=== PATIENT | male | born 1980 ===

== ENCOUNTER 2017-05-02 07:45 | Emergency (ER) | payer SELFPAY ==
[2017-05-02 08:21] VITALS: BP 122/74
--- NOTE | 2017-05-02 09:50 | UC ---
Abdominal Pain Male HPI - HPI Summary HPI Summary: Patient presents with an unremarkable past medical history. He presents today with reports of five day onset nausea, vomiting and diarrhea. He states that he has improved. He states he continues to have some diarrhea but overall has improved. He states that he needs a note to return to work. He denies any recnet antibiotic treatment, recent travel or ill contacts. He denies abdominal pain, fever, chills, dysuria, hematuria or abnormal vaginal discharge or bleeding. - History of Current Complaint Chief Complaint: UCGI Stated Complaint: ABD PAIN Time Seen by Provider: 05/02/17 09:31 Hx Obtained From: Patient Onset/Duration: Sudden Onset, Lasting Days Severity Initially: Moderate Severity Currently: None Character: Cramping Aggravating Factor(s):: Food Alleviating Factor(s): Spontaneous Resolution - Allergies/Home Medications Allergies/Adverse Reactions: Allergies Allergy/AdvReac Type Severity Reaction Status Date / Time No Known Allergies Allergy Verified 05/02/17 08:21 PMH/Surg Hx/FS Hx/Imm Hx Previously Healthy: Yes - Surgical History Surgical History: None Surgery Procedure, Year, and Place: Childhood surgery from [facility]. Patient is not sure of what surgeries were performed. - Family History Known Family History: Positive: Cardiac Disease, Hypertension - Social History Occupation: Employed Full-time Lives: Alone Alcohol Use: None Substance Use Type: Marijuana Smoking Status (MU): Never Smoked Tobacco Review of Systems Gastrointestinal: Diarrhea All Other Systems Reviewed And Are Negative: Yes Physical Exam Triage Information Reviewed: Yes Appearance: Well-Appearing Vital Signs: Initial Vital Signs Temp 97.6 F 05/02/17 08:17 Pulse 69 05/02/17 08:17 Resp 16 05/02/17 08:17 BP 122/74 05/02/17 08:17 Pulse Ox 100 05/02/17 08:17 Vital Signs Reviewed: Yes Eye Exam: Normal ENT Exam: Normal Respiratory Exam: Normal Cardiovascular Exam: Normal Abdominal Exam: Normal Musculoskeletal Exam: Normal Skin Exam: Normal Abd Pain Male Course/Dx - Course Course Of Treatment: Patient has been experiencing N/V/D onset last , and his symtpoms has almost completly resloved. He needs a work today so he can return. He states he now has just a few episodes of diarrhea and all other symtpoms have resolved. - Differential Dx/Clinical Impression Differential Diagnosis/HQI/PQRI: Other - nausea vomiting diarrhea Provider Diagnoses: nausea. vomting. diarrhea Discharge - Discharge Plan Condition: Stable Disposition: HOME Patient Education Materials: Gastroenteritis (ED) Forms: *Work Release Referrals: No Primary Care Phys,NOPCP [Primary Care Provider] -
== END 2017-05-02 09:49 | disposition home or self-care (01) ==
LOC: UCEAST 07:45
DX: R11.2 Nausea with vomiting, unspecified (principal); R19.7 Diarrhea, unspecified
CPT/HCPCS: 99201; G0463

== ENCOUNTER 2017-11-23 09:38 | Emergency (ER) | payer SELFPAY ==
[2017-11-23 10:03] VITALS: BP 121/75
--- NOTE | 2017-11-23 11:59 | UC ---
Ramon Mcbride Nilda, scribed for Lara Kellogg MD on 11/23/17 at 1041 . Abdominal Pain Male HPI - HPI Summary HPI Summary: This patient is a 37 year old M presenting to [facility] requesting medical clearance for work today. 2 days ago, pt states he had 3 episodes of diarrhea without other symptoms that resolved the following day. no blood, no black. no abdominal pain. No fever, chills, rash. No abd pain. No cp, sob No KAPADIA. Pt notes his work is requesting medical clearance before returning to work. The patient rates the pain 0/10 in severity. Patient denies loss of appetite, rash, bloody stool, and current diarrhea. Pt has been eating and drinking normally without complaints Pt states on 10/31/17 he felt he had food poisoning accompanied by fever, diaphoresis, fatigue, diarrhea, and vomiting, which resolved days ago. NKDA. He states he is not on daily medications. Patients medication reviewed this visit. - History of Current Complaint Chief Complaint: UCGeneralIllness Stated Complaint: DIARHEEA Time Seen by Provider: 11/23/17 10:09 Hx Obtained From: Patient Onset/Duration: Lasting Days, Resolved Timing: Constant Severity Currently: None Pain Intensity: 0 Pain Scale Used: 0-10 Numeric Alleviating Factor(s): Spontaneous Resolution Associated Signs And Symptoms: Positive: Other - fever, diaphoresis, fatigue, diarrhea, vomiting (resolved); negative rash, bloody stool, current diarrhea. - Allergies/Home Medications Allergies/Adverse Reactions: Allergies Allergy/AdvReac Type Severity Reaction Status Date / Time No Known Allergies Allergy Verified 11/23/17 09:48 PMH/Surg Hx/FS Hx/Imm Hx Previously Healthy: Yes - Surgical History Surgical History: Yes Surgery Procedure, Year, and Place: Childhood surgery from [facility]. Patient is not sure of what surgeries were performed. - Family History Known Family History: Positive: Cardiac Disease, Hypertension - Social History Occupation: Employed Full-time Lives: With Family Alcohol Use: None Substance Use Type: None Smoking Status (MU): Never Smoked Tobacco Review of Systems Constitutional: Fever - resolved, Fatigue - resolved, Other - diaphoresis ( resolved) Skin: Other - negative rash Gastrointestinal: Vomiting - resolved, Diarrhea - resolved, Other - negative bloody stool, loss of appetite All Other Systems Reviewed And Are Negative: Yes Physical Exam Triage Information Reviewed: Yes Appearance: Well-Appearing, No Pain Distress, Well-Nourished Vital Signs: Initial Vital Signs Temp 98.7 F 11/23/17 09:49 Pulse 76 11/23/17 09:49 Resp 18 11/23/17 09:49 BP 121/75 11/23/17 09:49 Pulse Ox 100 11/23/17 09:49 Vital Signs Reviewed: Yes Eye Exam: Normal Eyes: Positive: Conjunctiva Clear ENT Exam: Normal ENT: Positive: Normal ENT inspection, Hearing grossly normal Dental Exam: Normal Neck exam: Normal Neck: Positive: Supple, Nontender, No Lymphadenopathy Respiratory Exam: Normal Respiratory: Positive: Chest non-tender, Lungs clear, Normal breath sounds, No respiratory distress, No accessory muscle use Cardiovascular Exam: Normal Cardiovascular: Positive: RRR, No Murmur Abdominal Exam: Normal Abdomen Description: Positive: Nontender, No Organomegaly Bowel Sounds: Positive: Present Musculoskeletal Exam: Normal Musculoskeletal: Positive: Strength Intact Neurological Exam: Normal Neurological: Positive: Alert Psychological Exam: Normal Skin Exam: Normal Abd Pain Male Course/Dx - Course Course Of Treatment: Pt presents requesting a return to work note. Pt had diarrhea 3 days ago - non continued. pt without any complaints. 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 work note Discharge - Sign-Out/Discharge Documenting (check all that apply): Discharge - Discharge Plan Condition: Stable Disposition: HOME Patient Education Materials: Acute Diarrhea (ED) Forms: *Gen. Provider Communication Referrals: [facility] [Outside] No Primary Care Phys,NOPCP [Primary Care Provider] - Additional Instructions: Contact your doctor or return with any questions or concerns - Billing Disposition and Condition Condition: STABLE Disposition: HOME The documentation as recorded by the Ramon toussaint Nilda accurately reflects the service I personally performed and the decisions made by , Lara Kellogg MD.
== END 2017-11-23 10:40 | disposition home or self-care (01) ==
LOC: UCEAST 09:38
DX: R19.7 Diarrhea, unspecified (principal); R50.9 Fever, unspecified; R61 Generalized hyperhidrosis; R53.83 Other fatigue; R11.10 Vomiting, unspecified
CPT/HCPCS: 99211; G0463